=== PATIENT | female | born 1995 | race Caucasian/White ===

== ENCOUNTER 2016-11-15 18:27 | Emergency (ER) | payer BC ==
[~2016-11-15] VITALS: Ht 152.4 cm; Wt 62.0 kg
[2016-11-15 18:28] VITALS: BP 125/66; PULSE 84; RESP 20; TEMP 100.3; O2SAT 94
[2016-11-16] MEDS ORDERED: OSEL75 PO (00:43)
[2016-11-16] MEDS ORDERED: OSELTAMIVIR PHOSPHATE 75 MG CAP PO ONE (00:45)
--- NOTE | 2016-11-16 00:45 | PD ---
HPI Chief Complaint: GI Complaint Time Seen by Provider: 00:37 Travel History International Travel<30 days: No Contact w/Intl Traveler<30days: No Traveled to known affect area: No History of Present Illness HPI Patient complains of flulike symptoms. Duration a few days. She denies coughing however reports some myalgias as well as nausea vomiting diarrhea. No urinary complaint offered. Last menstruation was about 2 weeks ago and was normal. She is visiting from [place] for spring. [facility] Past Medical History Medical History: Denies Significant Hx Diminished Hearing: No Immunizations Current: No ?: Not LMP: 11/08/16 Past Surgical History Surgical History: No Previous Surgery Social History Alcohol Use: No Tobacco Use: No Substance Use: No Allergies-Medications (Allergen,Severity, Reaction): Coded Allergies: No Known Allergies (Unverified , 11/15/16) Reported Meds & Prescriptions Reported Meds & Active Scripts Active Tamiflu (Oseltamivir Phosphate) 75 Mg Cap 75 Mg PO BID 5 Days Review of Systems Except as stated in HPI: all other systems reviewed are Neg Physical Exam Narrative GENERAL: 21 yo F WNWND SKIN: Warm and dry. HEAD: Atraumatic. Normocephalic. EYES: Pupils equal and round. No scleral icterus. No injection or drainage. ENT: No nasal bleeding or discharge. Mucous membranes pink and moist. NECK: Trachea midline. No JVD. CARDIOVASCULAR: Regular rate and rhythm. RESPIRATORY: No accessory muscle use. Clear to auscultation. Breath sounds equal bilaterally. GASTROINTESTINAL: Abdomen soft, non-tender, nondistended. Hepatic and splenic margins not palpable. MUSCULOSKELETAL: Extremities without clubbing, cyanosis, or edema. No obvious deformities. NEUROLOGICAL: Awake and alert. No obvious cranial nerve deficits. Motor grossly within normal limits. Five out of 5 muscle strength in the arms and legs. Normal speech. PSYCHIATRIC: Appropriate mood and affect; insight and judgment normal. Data Data Last Documented VS Vital Signs Date Time Temp Pulse Resp B/P Pulse Ox O2 Delivery O2 Flow Rate FiO2 11/16/16 01:14 98.8 74 18 109/56 97 11/15/16 18:28 Room Air Orders Oseltamivir (Tamiflu) (11/16/16 00:45) [facility] Medical Decision Making Medical Screen Exam Complete: Yes Emergency Medical Condition: Yes Differential Diagnosis influenza, gastroenteritis, colitis Narrative Course Pt well appearing. Presentation could be influenza. Tamiflu script. Diagnosis Primary Impression: Influenza Referrals: Primary Care Physician 1 week Additional Instructions: You have a choice when it comes to health care, and we are glad that you chose [email or web address]. Hopefully, we have met your expectations on today's visit. You are welcome to return to [place] [facility] at any time, as we are committed to meeting the health care needs of our community. Med/Other Pt SpecificInfo: Prescription(s) given Scripts Oseltamivir (Tamiflu)75 Mg Cap75 Mg PO BID 5 Days Ref 0 Prov:Sukhdev Suarez MD 11/16/16 Disposition: 01 DISCHARGE HOME Condition: Stable Sukhdev Suarez MD Nov 16, 2016 00:45
[2016-11-16 01:14] VITALS: BP 109/56; PULSE 74; RESP 18; TEMP 98.8; O2SAT 97
== END 2016-11-16 01:22 | disposition home or self-care (01) ==
LOC: NEPC 18:27
DX: J11.1 Influenza due to unidentified influenza virus with other respiratory manifestations (principal)
CPT/HCPCS: 99283